=== PATIENT | male | born 1940 | race Caucasian/White ===

== ENCOUNTER 2018-05-23 09:05 | Inpatient (IN) ==
[2018-05-23] MEDS ORDERED: Morphine Sulfate Inj 2 MG/ML Vial IV.PUSH ONE (09:32)
[2018-05-23] MEDS ORDERED: Diphtheria/Tetanus/Pertussis Vaccine Inj 0.5 ML Syringe IM ONE (09:32)
--- NOTE | 2018-05-23 09:56 | ED ---
HPI General Chief complaint: Fall Stated complaint: fall Source: patient, EMS and RN notes reviewed Mode of arrival: EMS History of Present Illness HPI narrative: 78yM presenting after a fall. The patient reports that he was carrying a number of objects down the stairs when he fell, hitting the back of his head on the tile floor. He is unsure if he lost consciousness. He currently complains of diffuse headache, worst in occiput, not made better by anything/ worse with bright lights, constant, non-radiating, moderate intensity, and "aching". He takes 81 mg aspirin but does not use any other anticoagulants/ antiplatelets. Family history non-contributory. Related Data Home Medications Medication Instructions Recorded Confirmed aspirin 81 mg PO BID 05/23/18 05/23/18 metoprolol tartrate 50 mg PO DAILY 05/23/18 05/23/18 olmesartan [Benicar] 20 mg PO DAILY 05/23/18 05/23/18 Allergies Allergy/AdvReac Type Severity Reaction Status Date / Time No Known Allergies Allergy Verified 05/23/18 09:25 Review of Systems ROS: all other systems reviewed are negative Constitutional Denies fever(s) and Reports headache(s) Eyes Denies blurry vision ENT Reports nasal congestion Cardiovascular Denies chest pain Respiratory Denies cough Gastrointestinal Denies nausea Genitourinary Denies dysuria Musculoskeletal Denies back pain Neurologic Denies confusion Psychiatric Denies confusion PMFSH History History Provided By: Patient Medical History Medical History HTN (hypertension) (Acute) Heart attack (Acute) Social History Social History Substance History: No History of Abuse Second Hand Smoke Exposure: No Smoking Status: Former smoker Tobacco Type: Cigarettes How Often Do You Have a Drink Containing Alcohol: 2 to 3 times a week Recent Travel in [facility] within the Last 8 Weeks: No Recent Out of Country Travel within the Last 8 Weeks: No Immunization History Tetanus Immunization: Unsure Hx Influenza Vaccine This Season: Yes Exam Const General: healthy appearing and no acute distress HENMT Face and sinus: normal facial exam Other: Small hematoma/ tenderness to occiput, no scalp laceration Eyes General: appearance normal, both eyes and all related structures Pupils: PERRL Other: Pupils 3 mm and reactive bilaterally Neck Other: No midline C spine tenderness Patient declined cervical collar by EMS Chest Chest: normal inspection of the chest Resp Effort & Inspection: normal respiratory effort Auscultation: no rhonchi and no wheezes Cardio Rate: regular rate Rhythm: regular rhythm GI Inspection: non-distended Palpation: soft and nontender Back/Spine/Pelvis Other: No midline thoracolumbar tenderness (+) tenderness to left lateral thoracic area overlying ribs, no crepitus or ecchymosis Skin General: no rashes or lesions noted Other: 1 cm superficial laceration to ulnar surface of right 2nd digit, no active bleeding Neuro General: alert, awake, oriented x3 and no focal motor deficits Other: GCS 15 but appears mildly confused, repetitive Speech clear and fluent Moving all extremities No focal neuro deficits Psych Affect: normal affect Procedures Laceration right 2nd digit: Site: hand Side (If applicable): right Size (cm): 2 Description: linear Depth: simple, single layer Anesthetic used: lidocaine 1% Anesthesia technique:: nerve block (digital block) Amount (mL): 10 Pre-repair:: wound explored, irrigated extensively and deep structures intact Skin layer closed with: ethilon Size (cm): 5-0 Number of sutures:: 3 Technique:: simple, interrupted (Tolerated well, no immediate complications) Course Consultations Consultation #1: Patient found to have possible SDH along anterior falx; I had a long conversation with the patient regarding these findings and reviewed the CT scan with him. He agrees to stay for observation. I spoke with Dr. Fowler of trauma surgery, who agrees with obs. The patient requires transfer to the [facility] for trauma and neurosurgery evaluations. Time: 11:07 Consultation #2: Case discussed with Yoko (HEATHER working with Dr. Dutton), who will consult when patient arrives at [facility]. Time: 11:10 Initial Documented Vital Signs Temperature 98.2 F 05/23/18 09:09 Pulse Rate 69 05/23/18 09:09 Respiratory Rate 18 05/23/18 09:09 Blood Pressure 162/95 H 05/23/18 09:09 Pulse Oximetry 99 05/23/18 09:09 Last Documented Vital Signs Temperature 98.2 F 05/23/18 09:09 Pulse Rate 71 05/23/18 11:04 Respiratory Rate 18 05/23/18 11:04 Blood Pressure 151/76 H 05/23/18 11:04 Pulse Oximetry 95 05/23/18 11:04 Medical Decision Making MDM Narrative Medical decision making narrative: Assessment: 78yM presenting with fall, head injury Plan: Pain control, update tetanus CT head, C spine X-ray ribs, lumbar spine Laceration repaired, patient instructed to return in 7 days for suture removal Addendum: Patient found to have possible blood along anterior falx, requires transfer to [facility] for trauma and neurosurg evals. Please see "consults" tab for discussions with consultants. Medical Screen Exam Complete: Yes Emergency Medical Condition: Yes Differential Diagnosis Differential Diagnosis: Differential diagnosis includes, but is not limited to: ICH, skull fracture, closed head injury, C/ L spine fracture, rib fracture, PTX , laceration Lab Data Result diagrams: 05/23/18 11:10 05/23/18 11:10 Imaging Data Radiologist's impression: Cervical Spine CT 05/23/18 09:32 CONCLUSION: Degenerative spondylosis without any significant compromise to the exiting nerve roots or the thecal sac. Head CT 05/23/18 09:32 CONCLUSION: 1. Focal asymmetrical hyperdense prominence of the anterior falx which likely reflects atypical pattern of calcification. Cannot entirely exclude focal blood products in this region although suspect this is unlikely. 2. Otherwise, no acute intracranial abnormality. . Lumbar Spine X-Ray 05/23/18 09:32 CONCLUSION: Chronic changes. Ribs X-Ray 05/23/18 09:32 CONCLUSION: Chronic changes and no definite fracture for technique . Discharge Plan Discharge Disposition Patient Disposition: 02 Transfer To [facility] Discharge Condition Condition: Stable Discharge Details Discharge Comment: Patient needs to return to the ED or see his PMD in 7 days for suture removal. Diagnosis: Acute subdural hematoma, Laceration of right index finger Physicians Team ED Provider: Arelis Galaviz Primary Care Provider: UNKNOWN, Attending Provider: Shivam Fowler Other Providers: Jah Dutton Discharge Interventions Interventions: Vital Signs Last Done: 05/23/18 09:31 Status ED Status: Admitted Observation Patient
[2018-05-23] MEDS ORDERED: Lidocaine PF 1% Inj 10 ML Amp INFILTRATN ONE (10:03)
--- NOTE | 2018-05-23 10:09 | XR ---
EXAM DATE: 05/23/2018 10:03 AM EDT AGE/SEX: 78 years / Male INDICATIONS: Lower back pain post fall. CLINICAL DATA: This is the patient's initial encounter. Patient reports that signs and symptoms have been present for 1 day and indicates a pain score of 10/10. MEDICAL/SURGICAL HISTORY: Hypertension. Myocardial infarction. None. COMPARISON: No prior exams available for comparison. FINDINGS: No appreciable compression deformities, spondylolisthesis, or spondylolysis is seen. Moder ate degenerative changes are seen within the disc space and facets. Chronic atherosclerotic calcifica tions are seen without any definite aneurysmal dilatations for technique. There is moderate amount of stool in the colon. CONCLUSION: Chronic changes. Electronically signed by: Malka Santo MD 05/23/2018 10:07 AM EDT
--- NOTE | 2018-05-23 10:11 | XR ---
EXAM DATE: 05/23/2018 10:06 AM EDT AGE/SEX: 78 years / Male INDICATIONS: Left side rib pain post fall CLINICAL DATA: This is the patient's initial encounter. Patient reports that signs and symptoms have been present for 1 day and indicates a pain score of 10/10. MEDICAL/SURGICAL HISTORY: Hypertension. Myocardial infarction. None. COMPARISON: No prior exams available for comparison. FINDINGS: No definite displaced rib fractures or pneumothorax is identified. There is evidence for o ld fracture of left lower glenohumeral joint with displaced bony fragments and a superimposed signifi cant degenerative change within the joint. Slight degree of chronic calcific tendinitis is also seen. CONCLUSION: Chronic changes and no definite fracture for technique . Electronically signed by: Malka Santo MD 05/23/2018 10:09 AM EDT
--- NOTE | 2018-05-23 10:24 | CT ---
EXAM DATE: 05/23/2018 10:16 AM EDT AGE/SEX: 78 years / Male INDICATIONS: Trauma. Fell down stairs. Head injury. CLINICAL DATA: This is the patient's initial encounter. Patient reports that signs and symptoms have been present for 1 day and indicates a pain score of 9/10. MEDICAL/SURGICAL HISTORY: Myocardial infarction. Hypertension. None. RADIATION DOSE: 65.92 CTDI (mGy) COMPARISON: No prior exams available for comparison. TECHNIQUE: CT of the head without contrast. Using automated exposure control and adjustment of the mA and/or kV according to patient size, radiation dose was kept as low as reasonably achievable to ob tain optimal diagnostic quality images. DICOM format image data is available electronically for revi ew and comparison. FINDINGS: Cerebrum: There is somewhat asymmetrical hyperdensity involving the anterior falx. Moderate diffuse cerebral atrophy. The ventricles are normal for degree of atrophy. No evidence of midline shift, mass lesion, intraparenchymal hemorrhage or acute infarction. Therwise, no extraaxial fluid collections a re seen. Posterior Fossa: The cerebellum and brainstem are intact. The 4th ventricle is midline. The cerebe llopontine angle is unremarkable. Extracranial: The visualized portion of the orbits is intact. Skull: The calvaria is intact. No evidence of skull fracture. CONCLUSION: 1. Focal asymmetrical hyperdense prominence of the anterior falx which likely reflects atypical jayden kiya of calcification. Cannot entirely exclude focal blood products in this region although suspect th is is unlikely. 2. Otherwise, no acute intracranial abnormality. . Electronically signed by: Jcarlos Hubbard MD 05/23/2018 10:23 AM EDT
--- NOTE | 2018-05-23 10:30 | CT ---
EXAM DATE: 05/23/2018 10:21 AM EDT AGE/SEX: 78 years / Male INDICATIONS: Trauma. Fell down stairs. Head injury. CLINICAL DATA: This is the patient's initial encounter. Patient reports that signs and symptoms have been present for 1 day and indicates a pain score of 2/10. MEDICAL/SURGICAL HISTORY: Myocardial infarction. Hypertension. None. RADIATION DOSE: 26.54 CTDI (mGy) COMPARISON: No prior exams available for comparison. TECHNIQUE: Contiguous axial images were obtained using helical multirow detector technique. The vol umetric data was post-processed with multiplanar reconstruction in oblique axial, sagittal, and coron al planes. Using automated exposure control and adjustment of the mA and/or kV according to patient s ize, radiation dose was kept as low as reasonably achievable to obtain optimal diagnostic quality willi ges. DICOM format image data is available electronically for review and comparison. FINDINGS: No significant subluxation or soft tissue swelling is seen. No definite fracture is identified for te chnique. C2-C3: No appreciable compromise to the thecal sac, exiting nerve roots are seen. The neural foramin a are patent bilaterally. No appreciable thecal sac stenosis is seen. C3-C4: No appreciable compromise to the thecal sac, exiting nerve roots are seen. The neural foramin a are patent bilaterally. No appreciable thecal sac stenosis is seen. C4-C5: No appreciable compromise to the thecal sac, exiting nerve roots are seen. The neural foramin a are patent bilaterally. No appreciable thecal sac stenosis is seen. Slight bulging disc and hypertr ophic changes are seen with indentation on the thecal sac and no significant compromise to the thecal sac or the exiting nerve roots. C5-C6: No appreciable compromise to the thecal sac, exiting nerve roots are seen. The neural foramin a are patent bilaterally. No appreciable thecal sac stenosis is seen. Slight degenerative changes are present in the disc space and facets. Slight bulging disc and hypertrophic changes are seen with ind entation on the thecal sac and no significant compromise to the thecal sac or the exiting nerve roots . C6-C7: No appreciable compromise to the thecal sac, exiting nerve roots are seen. The neural foramin a are patent bilaterally. No appreciable thecal sac stenosis is seen.Slight degenerative changes are present in the disc space and facets. Slight bulging disc and hypertrophic changes are seen with inde ntation on the thecal sac and no significant compromise to the thecal sac or the exiting nerve roots. C7-T1: No appreciable compromise to the thecal sac, exiting nerve roots are seen. The neural foramin a are patent bilaterally. No appreciable thecal sac stenosis is seen. CONCLUSION: Degenerative spondylosis without any significant compromise to the exiting nerve roots o r the thecal sac. Electronically signed by: Malka Santo MD 05/23/2018 10:29 AM EDT
[2018-05-23] MEDS ORDERED: Bacitracin Oint 0.9 GM Packet TOPICAL ONE (11:31)
[2018-05-23 11:36] LABS: Hematocrit 34.8 % (39.0-51.0); Hemoglobin 11.5 gm/dL (13.0-17.0); Mean Corpuscular Hemoglobin 29.2 pg (27.0-34.0); Mean Corpuscular Volume 88.4 fL (80.0-100.0); Mean Platelet Volume 10.2 fL (7.0-11.0); Platelet Count 99 th/mm3 (150-450); Red Blood Count 3.94 mil/mm3 (4.50-5.90); Red Cell Distribution Width 14.3 % (11.6-17.2); White Blood Count 5.9 th/mm3 (4.0-11.0)
[2018-05-23 11:37] LABS: Potassium 4.5 meq/L (3.5-5.1)
[2018-05-23 11:39] LABS: Calcium 8.7 mg/dL (8.5-10.1)
[2018-05-23 11:40] LABS: Carbon Dioxide 27.1 meq/L (21.0-32.0); INR 1.1 Ratio; Prothrombin Time 11.2 sec (9.8-11.6)
[2018-05-23 11:59] LABS: Lymphocytes 13 % (9-44); Monocytes 22 % (0-8); Platelet Morphology Normal (Normal)
--- NOTE | 2018-05-23 14:35 | P.CONNS ---
History of Present Illness Service: neurosurgery Primary Care Provider: UNKNOWN History of Present Illness: This is a 78 year old male who presents to the emergency after a fall. The patient reports that he was carrying a number of objects down the stairs when he fell, hitting the back of his head on the tile floor. He is unsure if he lost consciousness. He currently complains of diffuse headache, worst in occiput , not made better by anything/ worse with bright lights, constant, non-radiating , moderate intensity, and "aching". He takes 81 mg aspirin but does not use any other anticoagulants/ antiplatelets. His family history was reviewed and was non contributory to the present admission Review of Systems Constitutional: Denies anorexia, Denies body ache(s), Denies chills, Denies daytime sleepiness, Denies excessive sweating, Denies fatigue, Denies fever(s), Denies headache(s), Denies increased appetite, Denies lack of energy, Denies malaise, Denies night sweats, Denies weakness, Denies weight gain, Denies weight loss, Denies other Eyes: Denies blind spots, Denies blurry vision, Denies bulging eyes, Denies change in vision, Denies double vision, Denies discharge, Denies dry eyes, Denies floaters, Denies irritation, Denies itchy eyes, Denies loss of vision, Denies pain, Denies requires corrective lenses, Denies sensitivity to light, Denies other Ears, Nose, Mouth, and Throat: Denies abnormal hearing, Denies bleeding gums, Denies bad breath, Denies change in voice, Denies dental pain, Denies difficulty swallowing, Denies dizziness, Denies dry mouth, Denies ear discharge , Denies ear pain, Denies facial pain, Denies headache(s), Denies hearing loss, Denies hoarseness, Denies lip swelling, Denies nosebleed, Denies mouth lesions, Denies mouth pain, Denies nasal congestion, Denies nasal discharge, Denies nasal obstruction, Denies nasal trauma, Denies neck lump, Denies neck pain, Denies nose pain, Denies pain with swallowing, Denies poor balance, Denies post nasal drip, Denies ringing in the ears, Denies sinus pain, Denies sinus pressure , Denies sore throat, Denies throat swelling, Denies tongue swelling, Denies other Cardiovascular: Denies chest pain, Denies chest pain at rest, Denies chest pain with activity, Denies excessive sweating, Denies fainting, Denies fast heart rate, Denies foot swelling, Denies generalized swelling, Denies irregular heart rhythm, Denies leg pain with activity, Denies leg sores, Denies leg swelling, Denies lightheadedness, Denies radiating jaw, neck or arm pain, Denies rapid, pounding, or irregular heartbeat, Denies shortness of breath, Denies shortness of breath with activity, Denies shortness of breath when lying down, Denies shortness of breath causing sudden awakening, Denies slow heart rate, Denies other Respiratory: Denies change in phlegm color, Denies chest congestion, Denies cough, Denies coughing up blood, Denies excessive phlegm production, Denies pain on inspiration, Denies pain with cough, Denies shortness of breath, Denies shortness of breath with activity, Denies snoring, Denies stridor, Denies wheezing, Denies other Gastrointestinal: Denies abdominal pain, Denies belching, Denies black, tarry stools, Denies bloating, Denies bright, red blood in stools, Denies change in bowel habits, Denies constant urge to pass stool, Denies change in stools, Denies coffee ground vomit, Denies constipation, Denies cramping, Denies difficulty swallowing, Denies excessive passing of gas, Denies feeling full early, Denies heartburn, Denies incontinent of stools, Denies loose stools, Denies nausea, Denies pain with swallowing, Denies vomiting, Denies vomiting blood, Denies other Genitourinary: Denies blood in semen, Denies blood in urine, Denies decreased urination, Denies difficulty urinating, Denies difficulty with ejaculations, Denies erectile dysfunction, Denies genital lesions, Denies genital pain, Denies painful urination, Denies side pain, Denies frequent nighttime urination , Denies painful ejaculations, Denies penile discharge, Denies scrotal swelling , Denies testicle lump, Denies testicle pain, Denies urinary frequency, Denies urinary hesitancy, Denies urinary incontinence, Denies urinary urgency, Denies other Musculoskeletal: Denies abnormal walking, Denies back pain, Denies body aches, Denies decreased muscle mass, Denies deformity, Denies joint pain, Denies joint swelling, Denies limited joint movement, Denies loss of height, Denies muscle cramps, Denies muscle weakness, Denies neck pain, Denies numbness, Denies radiating pain into limb, Denies stiffness, Denies tingling, Denies other Skin/Breast: Denies acne, Denies bleeding lesions, Denies boil, Denies breast swelling, Denies breast skin changes, Denies breast pain, Denies breast lump, Denies change in breast shape, Denies change in hair, Denies change in skin color, Denies changing lesions, Denies dry skin, Denies excessive hair growth, Denies hair loss, Denies itching, Denies lesions, Denies nail changes, Denies new lesions, Denies nipple discharge, Denies non-healing lesions, Denies redness , Denies sensitivity to light, Denies rash, Denies skin pain, Denies skin ulcer , Denies sores, Denies stretch stallings, Denies unusual bruising, Denies wounds, Denies yellowing of the skin, Denies other Neurologic: Reports confusion, Reports other visual disturbances Psychiatric: Denies abnormal sleep pattern, Denies anxiety, Denies behavioral changes, Denies change in appetite, Denies change in sex drive, Denies confusion , Denies depression, Denies difficulty concentrating, Denies hearing things others do not hear, Denies hopelessness, Denies irritability, Denies lack of enjoyment, Denies memory loss, Denies mood swings, Denies panic attacks, Denies paranoia, Denies seeing things others do not see, Denies sensing things others do not sense, Denies tactile hallucinations, Denies thoughts of hurting/killing others, Denies thoughts of hurting/killing yourself, Denies other Endocrine: Denies cold intolerance, Denies excessive sweating, Denies flushing, Denies heat intolerance, Denies increased hunger, Denies increased thirst, Denies increased urination, Denies rapid, pounding, or irregular heartbeat, Denies other PMFSH - History History Provided By: Patient - Medical History Medical History: Medical History (Last Reviewed 05/24/18 @ 12:39 by Jah Dutton MD) HTN (hypertension) Heart attack - Tobacco History Second Hand Smoke Exposure: No Tobacco Use In Past 30 Days: No Smoking Status: Former smoker Tobacco Type: Cigarettes - Alcohol History How Often Do You Have a Drink Containing Alcohol: 2 to 3 times a week - Substance Use History Substance History: No History of Abuse - Travel History Recent Travel in the [place] Within the Last 8 Weeks: No Recent Travel Out of the Country Within the Last 8 Weeks: No - Immunization History Tetanus Immunization: Unsure Hx Influenza Vaccine This Season: Yes Medications and Allergies Allergies Allergy/AdvReac Type Severity Reaction Status Date / Time No Known Allergies Allergy Verified 05/23/18 09:25 Home Medications Medication Instructions Recorded Confirmed Type metoprolol tartrate 50 mg PO DAILY 05/23/18 05/23/18 History olmesartan [Benicar] 20 mg PO DAILY 05/23/18 05/23/18 History Exam Vital signs: Vital Signs 05/23/18 09:09 05/23/18 09:31 05/23/18 11:04 Temperature 98.2 F Pulse Rate 69 68 71 Respiratory Rate 18 18 18 Blood Pressure 162/95 H 158/77 H 151/76 H Pulse Oximetry 99 98 95 05/23/18 12:13 Temperature Pulse Rate 70 Respiratory Rate 18 Blood Pressure 152/78 H Pulse Oximetry 95 Intake & Output 05/22/18 05/23/18 05/23/18 18:59 06:59 18:59 Weight 91.172 kg Narrative: The patient is alert, awake. Comfortable, in no acute distress. Speech is fluent. Cranial nerve examination: pupils to be equal, round and reactive to light. Extra-ocular movements are intact. Facial motor and sensory function are normal and symmetrical. Gross hearing appears intact. Sternocleidomastoid and trapezius muscles are symmetrical. Other cranial nerves are intact. Neck is soft and supple with a good range of motion without pain. Muscle strength is normal in all muscle groups of both upper and lower extremities. Sensory examination is intact to light touch and pin prick in both the upper and lower extremities. Deep tendon reflexes are symmetrical in both upper and lower extremities. There is a bilateral plantar flexion response. Cerebellar examination is unremarkable, without deficits. Lungs are clear Heart regular rhythm is regular rate Skin warm and dry Results - Laboratory Findings CBC and BMP: 05/24/18 08:06 05/24/18 08:06 Abnormal lab findings: Abnormal Labs 05/23/18 05/23/18 11:10 11:10 RBC 3.94 L Hgb 11.5 L Hct 34.8 L Plt Count 99 L Monocytes % (Manual) 22 H Platelet Estimate Low L Chloride 108 H BUN 20 H Estimated GFR 59 L Random Glucose 121 H Assessment and Plan - Plan I reviewed his radiological studies including Cervical Spine CT 05/23/18 09:32 CONCLUSION: Degenerative spondylosis without any significant compromise to the exiting nerve roots or the thecal sac. Head CT 05/23/18 09:32 CONCLUSION: 1. Focal asymmetrical hyperdense prominence of the anterior falx which likely reflects atypical pattern of calcification. Cannot entirely exclude focal blood products in this region although suspect this is unlikely. 2. Otherwise, no acute intracranial abnormality. . Lumbar Spine X-Ray 05/23/18 09:32 CONCLUSION: Chronic changes. Ribs X-Ray 05/23/18 09:32 CONCLUSION: Chronic changes and no definite fracture for technique . Neuro: neuro checks in a serial fashion. He suffered a severe concusion and has symptoms consisent with a post concusion syndrome. Follow-up CT of the brain in the morning is recommended Hypertension monitor his blood pressure and treated with antihypertensives Pulmonary: aggressive pulmonary toilette, nasotracheal suction, and breathing treatments with nebulizers. Daily PT and OT Renal: Continue to monitor closely urine output, BUN and creatinine Endocrine: Continue to Monitor serial Acu checks and SSI as needed in detail ID continue to monitor for signs of infection Continue Protonix for stress ulcer prophylaxis Continue Rubin hose and SCD's for DVT prophylaxis Further recommendations will be provided depending on the patient's clinical evaluation and follow up studies. Discussed with Dr. Khalil
[2018-05-23] MEDS ORDERED: Acetaminophen 325 MG Tablet PO PRN (16:52)
[2018-05-23] MEDS ORDERED: Pantoprazole Inj 40 MG Vial IV.PUSH SCH (17:00)
[2018-05-23] MEDS: Sod Chloride 0.9% Inj 1,000 ML IV.CONT SCH (17:20)
--- NOTE | 2018-05-23 17:53 | MH ---
cc: Shivam Fowler MD DATE OF ADMISSION: 05/23/2018 HISTORY: This is a 78-year-old male who presented to the emergency room after a fall from about 5 stairs up. The patient was evaluated in the emergency room and thought to have a traumatic brain injury. As a result trauma service was requested upon admission. The patient complains of headache, right finger pain. He remembers the fall. Unsure whether he lost consciousness. States that if he did lose consciousness it was brief. He denies chest pain or shortness of breath. No paresthesias. No neck pain. No abdominal pain. PAST MEDICAL HISTORY: Significant for hypercholesterolemia. MEDICATIONS AT HOME: Includes: 1. Baby aspirin 2. Crestor. SOCIAL HISTORY: The patient does not currently smoke. He drinks alcohol occasionally. ALLERGIES: HE HAS NO KNOWN DRUG ALLERGIES. FAMILY HISTORY: Noncontributory. REVIEW OF SYSTEMS: Significant for above. PHYSICAL EXAMINATION: GENERAL: He is lying in a stretcher in no acute distress. HEENT: His pupils are equal and reactive. NECK: Trachea is midline. Neck nontender. RESPIRATIONS: Clear. CARDIOVASCULAR: Regular. GASTROINTESTINAL: Soft, nontender. MUSCULOSKELETAL: No deformity. NEUROLOGIC: Nonfocal. BACK: Nontender. No step-offs. EXTREMITIES: He does have a suture laceration on the second digit of his right hand. RADIOLOGIC IMAGES: CT scan of the patient's head reveals questionable calcification versus focal blood in the anterior falx. CT of the cervical spine, no fracture. Rib x-ray, no fracture on the left. ASSESSMENT AND PLAN: This is a patient status post fall with questionable closed head injury. The patient neurologically intact. The patient will be admitted for observation. Neurosurgery has been consulted. We will repeat his head CT in the a.m. Provide pain management. Shivam Fowler MD JLS/ct , 05:16 PM , 05:24 PM
[2018-05-24] MEDS: Sod Chloride 0.9% Inj 1,000 ML IV.CONT SCH ×2 (04:03→15:22)
--- NOTE | 2018-05-24 08:53 | CT ---
EXAM DATE: 05/24/2018 8:44 AM EDT AGE/SEX: 78 years / Male INDICATIONS: Abnormal prior CT brain. CLINICAL DATA: This is the patient's initial encounter. Patient reports that signs and symptoms have been present for 1 day and indicates a pain score of 0/10. MEDICAL/SURGICAL HISTORY: Hypertension. Myocardial infarction. None. RADIATION DOSE: 56.35 CTDI (mGy) COMPARISON: [facility], CT HEAD W/O CONTRAST, 05/23/2018. . TECHNIQUE: CT of the head without contrast. Using automated exposure control and adjustment of the mA and/or kV according to patient size, radiation dose was kept as low as reasonably achievable to ob tain optimal diagnostic quality images. DICOM format image data is available electronically for revi ew and comparison. FINDINGS: Cerebrum: The ventricles are normal for age. No evidence of midline shift, mass lesion, hemorrhage or acute infarction. No extraaxial fluid collections are seen. The anterior falx is again noted to b e hyperdense but most likely related to calcifications Posterior Fossa: The cerebellum and brainstem are intact. The 4th ventricle is midline. The cerebe llopontine angle is unremarkable. Extracranial: The visualized portion of the orbits is intact. Skull: The calvaria is intact. No evidence of skull fracture. CONCLUSION: 1. Stable CT brain. 2. Hyperdense anterior falx likely related to calcification and less likely hemorrhage. No midline s hift or mass effect. . Electronically signed by: Koffi Dalton MD 05/24/2018 8:51 AM EDT
[2018-05-24 09:01] LABS: Baso % (Auto) 0.1 % (0.0-2.0); Eos % (Auto) 0.3 % (0.0-4.0); Hematocrit 32.8 % (39.0-51.0); Hemoglobin 11.2 gm/dL (13.0-17.0); Lymph # (Auto) 1.6 th/mm3 (1.0-4.8); Lymph % (Auto) 15.7 % (9.0-44.0); Mean Corpuscular HGB Conc 34.3 % (32.0-36.0); Mean Corpuscular Hemoglobin 29.8 pg (27.0-34.0); Mean Corpuscular Volume 86.8 fL (80.0-100.0); Mean Platelet Volume 10.1 fL (7.0-11.0); Mono # (Auto) 3.7 th/mm3 (0.0-0.9); Mono % (Auto) 37.3 % (0.0-8.0); Neut # (Auto) 4.6 th/mm3 (1.8-7.7); Neut % (Auto) 46.6 % (16.0-70.0); Platelet Count 108 th/mm3 (150-450); Red Blood Count 3.77 mil/mm3 (4.50-5.90); White Blood Count 9.9 th/mm3 (4.0-11.0)
[2018-05-24 09:19] LABS: Albumin 3.7 g/dL (3.4-5.0); Anion Gap 8 meq/L (5-15); Aspartate Aminotransferase 20 U/L (15-37); Blood Urea Nitrogen 21 mg/dL (7-18); Calcium 8.4 mg/dL (8.5-10.1); Carbon Dioxide 25.2 meq/L (21.0-32.0); Chloride 107 meq/L (98-107); Glomerular Filtration Rate 47 mL/min (>89); Glucose,Random 107 mg/dL (74-106); Sodium 140 meq/L (136-145)
[2018-05-24 09:22] LABS: Alanine Aminotransferase 21 U/L (12-78); Alkaline Phosphatase 50 U/L (45-117); Total Protein 7.2 g/dL (6.4-8.2)
[2018-05-24] MEDS ORDERED: Metoprolol Tartrate 50 MG Tablet PO SCH (10:00)
[2018-05-24 10:13] LABS: Platelet Morphology Normal (Normal)
[2018-05-24] MEDS: Senna/Docusate Sodium 8.6/50 MG Tablet PO SCH ×2 (12:16→12:19)
--- NOTE | 2018-05-24 12:46 | P.PNNS ---
Subjective Interval history: This is a 78 year old male who presents to the emergency after a fall. The patient reports that he was carrying a number of objects down the stairs when he fell, hitting the back of his head on the tile floor. He is unsure if he lost consciousness. He currently complains of diffuse headache, worst in occiput , not made better by anything/ worse with bright lights, constant, non-radiating , moderate intensity, and "aching". He takes 81 mg aspirin but does not use any other anticoagulants/ antiplatelets. 05/24. He reports persistent headaches and photophobia. No focal deficits. Follow up CT of the brain was obtained Physical Exam Vital signs: Vital Signs 05/23/18 17:04 05/23/18 18:37 05/23/18 20:00 Temperature 98.2 F 98.0 F Pulse Rate 68 65 65 Respiratory Rate 20 15 Blood Pressure 142/60 H 117/60 Pulse Oximetry 98 95 05/23/18 23:45 05/24/18 03:54 05/24/18 08:00 Temperature 98.6 F 98.7 F 98.6 F Pulse Rate 64 78 75 Respiratory Rate 23 22 16 Blood Pressure 154/68 H 166/70 H 143/67 H Pulse Oximetry 96 95 93 L 05/24/18 12:00 Temperature 98.4 F Pulse Rate 74 Respiratory Rate 16 Blood Pressure 156/72 H Pulse Oximetry 94 L Intake & Output 05/23/18 05/24/18 05/24/18 18:59 06:59 18:59 Intake Total 1000 / 1000 Balance 1000 / 1000 Weight 91.172 kg 93.9 kg Intake: IV 1000 / 1000 NS Inj 1,000 ML @ 100 mls/hr IV 1000 / 1000 .CONT .Q10H [facility] Rx#:[id number] Oral 0 / 0 Oral Supplement 0 / 0 Narrative: Mr Good is alert, awake. Comfortable, in no acute distress. Speech is fluent. Cranial nerve examination: pupils to be equal, round and reactive to light. Extra-ocular movements are intact. Facial motor and sensory function are normal and symmetrical. Gross hearing appears intact. Sternocleidomastoid and trapezius muscles are symmetrical. Other cranial nerves are intact. Neck is soft and supple with a good range of motion without pain. Muscle strength is normal in all muscle groups of both upper and lower extremities. Sensory examination is intact to light touch and pin prick in both the upper and lower extremities. Deep tendon reflexes are symmetrical in both upper and lower extremities. There is a bilateral plantar flexion response. Cerebellar examination is unremarkable, without deficits. Lungs are clear Heart regular rhythm is regular rate Skin warm and dry Assessment and Plan - Plan I reviewed his follow 7up CT of the brain today Neuro: Continue neuro checks in a serial fashion. He suffered a severe concusion and explained to him that his symptoms are consistent with a post concusion syndrome. Follow-up CT of the brain was stable Hypertension monitor his blood pressure and treated with antihypertensives Pulmonary: aggressive pulmonary toilette, nasotracheal suction, and breathing treatments with nebulizers. Daily PT and OT Renal: Continue to monitor closely urine output, BUN and creatinine Endocrine: Continue to Monitor serial Acu checks and SSI as needed in detail ID continue to monitor for signs of infection Continue Protonix for stress ulcer prophylaxis Continue Rubin hose and SCD's for DVT prophylaxis Further recommendations will be provided depending on the patient's clinical evaluation and follow up studies. Can discharge home per neuropsurgical standpoint
--- NOTE | 2018-05-24 13:51 | P.PN ---
Subjective Interval history: Trauma PTD: 1 Physical Exam Vital signs: Vital Signs 05/23/18 17:04 05/23/18 18:37 05/23/18 20:00 Temperature 98.2 F 98.0 F Pulse Rate 68 65 65 Respiratory Rate 20 15 Blood Pressure 142/60 H 117/60 Pulse Oximetry 98 95 05/23/18 23:45 05/24/18 03:54 05/24/18 08:00 Temperature 98.6 F 98.7 F 98.6 F Pulse Rate 64 78 75 Respiratory Rate 23 22 16 Blood Pressure 154/68 H 166/70 H 143/67 H Pulse Oximetry 96 95 93 L 05/24/18 12:00 Temperature 98.4 F Pulse Rate 74 Respiratory Rate 16 Blood Pressure 156/72 H Pulse Oximetry 94 L Intake & Output 05/23/18 05/24/18 05/24/18 18:59 06:59 18:59 Intake Total 1000 / 1000 Balance 1000 / 1000 Weight 91.172 kg 93.9 kg Intake: IV 1000 / 1000 NS Inj 1,000 ML @ 100 mls/hr IV 1000 / 1000 .CONT .Q10H [facility] Rx#:[id number] Oral 0 / 0 Oral Supplement 0 / 0 Results - Labs CBC & Chem 7: 05/24/18 08:06 05/24/18 08:06 Laboratory Results - last 24 hr 05/24/18 05/24/18 08:06 08:06 WBC 9.9 D RBC 3.77 L Hgb 11.2 L Hct 32.8 L MCV 86.8 MCH 29.8 MCHC 34.3 RDW 15.0 Plt Count 108 L MPV 10.1 Prelim Diff (Auto) Slide review pending Neut % (Auto) 46.6 Lymph % (Auto) 15.7 [place] % (Auto) 37.3 H Eos % (Auto) 0.3 Baso % (Auto) 0.1 Neut # (Auto) 4.6 Lymph # (Auto) 1.6 [place] # (Auto) 3.7 H Eos # (Auto) 0.0 Baso # (Auto) 0.0 WBC Differential . Diff Scan Auto diff confirmed Differential Comment . Platelet Estimate Low L Platelet Morphology Normal Sodium 140 Potassium 4.0 Chloride 107 Carbon Dioxide 25.2 Anion Gap 8 BUN 21 H Creatinine 1.45 H Estimated GFR 47 L Random Glucose 107 H Calcium 8.4 L Total Bilirubin 0.6 AST 20 ALT 21 Alkaline Phosphatase 50 Total Protein 7.2 Albumin 3.7 - Imaging Impressions Head CT 05/24/18 06:00 CONCLUSION: 1. Stable CT brain. 2. Hyperdense anterior falx likely related to calcification and less likely hemorrhage. No midline shift or mass effect. .
--- NOTE | 2018-05-24 14:49 | OTSOAPIP ---
TIME SESSION COMPLETED: 1115 TREATMENT TIME: 0 MINS. CHART REVIEWED. ATTEMPTED TO SEE FOR OT EVALUATION AND ENTERED ROOM AND INTRODUCED SELF TO PATIENT, HOWEVER DR. FLOWER CAME IN TO SEE PATIENT. WILL FOLLOW ABLE. Therapist: Kerry Hawk Signature on file
--- NOTE | 2018-05-25 09:29 | P.DS ---
Date of admission: 05/23/18 16:52 Primary care physician: UNKNOWN Anticipated date of discharge: 05/24/18 Brief History from admission: Mechanical fall. DS: Diagnosis - Discharge Diagnosis (1) Acute subdural hematoma Status: Acute (2) Laceration of right index finger Status: Acute DS: Medications - Discharge Medications Prescriptions: oxycodone-acetaminophen [Percocet] 1 tab PO Q4-6H PRN 3 Days #18 tab PRN Reason: Pain DS: Summary Hospital Course: [place]: This ia a 78 year old male who sustained a mechanical fall. Fell down some stairs while carrying many items in his hands. Hit his head on the tile floor. + LOC. On asprin. INJURIES: SD[facility] RIGHT finger laceration (3 sutures) PMHx: HTN. HLD. Consults: SHRUTHI. CM. The patient is now tolerating a po diet. Eating and drinking well. Pain is being managed well with PO pain medications, and patient is being a provided with a script for pain meds upon discharge. [This patient will be prescribed narcotic pain medications due to his traumatic injuries. The patient has a normal physiological response to severe traumatic injuries and surgery. He will need acute pain management with prescribed narcotic treatment. The [employer] prescription drug monitoring program database has been queried.] (NO driving while taking narcotic pain medication enforced to patient.) We have recommended to patient to continue with stool softeners while taking narcotic pain medications to prevent constipation. Pt has been participating in PT while admitted at [facility] and has been ambulating with their assistance and independently. PT recommends outpatient PT. Referral provided. All follow up appointments have been provided and discussed with the patient. It is recommended that the patient keeps all his follow up appointments for continued recovery. Patient's condition and plan of care discussed with collaborating trauma surgeon. He is agreeable to plan for discharge today. Therefore, the patient is stable to be safely discharged home from a trauma surgery standpoint. Thank you for allowing us to participate in his care. We wish Shantanu the best in his recovery. [facility] Neurosurgery consulted and assisting in management and care Supportive care Serial neuro checks 05/24: CT brain stable CT brain for any change in neurological status PT ordered [facility] out of bed Pain management Cleared by neurosurgery for discharge Follow-up outpatient RIGHT finger laceration Wash gently with soap and water and pat dry daily. Return to PCP for suture removal - Time Spent with Patient Total time spent providing and/or coordinating discharge services: Greater than 30 minutes - Quality: VTE Deep Vein Thrombosis/Pulmonary Embolism Present on Admission: No Exam Vital signs: Vital Signs 05/24/18 12:00 Temperature 98.4 F Pulse Rate 74 Respiratory Rate 16 Blood Pressure 156/72 H Pulse Oximetry 94 L Results Labs on day of discharge: Labs from last 24 hours 05/24/18 08:06 WBC Differential . Diff Scan Auto diff confirmed Platelet Estimate Low L Platelet Morphology Normal - Impressions ITS Impressions Cervical Spine CT 05/23/18 09:32 CONCLUSION: Degenerative spondylosis without any significant compromise to the exiting nerve roots or the thecal sac. Lumbar Spine X-Ray 05/23/18 09:32 CONCLUSION: Chronic changes. Ribs X-Ray 05/23/18 09:32 CONCLUSION: Chronic changes and no definite fracture for technique . Head CT 05/24/18 06:00 CONCLUSION: 1. Stable CT brain. 2. Hyperdense anterior falx likely related to calcification and less likely hemorrhage. No midline shift or mass effect. . Discharge Plan - Discharge Disposition Patient Disposition: 01 Discharge Home - Discharge Condition Condition: Stable - Discharge Order Discharge Orders: Discharge Order (Routine); Ordered 05/24/18 Ordered By: Xena Beyer - Discharge Details Anticipated Discharge Date: 05/24/18 Discharge Comment: Pt may DC home when cleared by PT - PT has cleared pt - Physicians Team Primary Care Provider: UNKNOWN, Attending Provider: Shivam Fowler Other Providers: Jah Dutton MD ; Gael Valencia MD ; Jared Perez MD ; [facility] ; Shivam Fowler MD ; Xena Beyer ARNP ; Isidoro Olvera MD ; Concetta Fink MD ; Suzy English ARNP ; Liz Caceres MD
--- NOTE | 2018-05-25 09:40 | P.DS ---
Date of admission: 05/23/18 16:52 Primary care physician: UNKNOWN Anticipated date of discharge: 05/24/18 Brief History from admission: Mechanical fall. DS: Diagnosis - Discharge Diagnosis (1) Acute subdural hematoma Status: Acute (2) Laceration of right index finger Status: Acute DS: Medications - Discharge Medications Prescriptions: oxycodone-acetaminophen [Percocet] 1 tab PO Q4-6H PRN 3 Days #18 tab PRN Reason: Pain DS: Summary Hospital Course: [facility] [place] CHAPTER: This is a 48-year-old male who sustained a mechanical fall. Fell down some stairs. Hit his head on the tile floor. + LOC. On asprin. INJURIES: SDH RIGHT finger laceration (3 sutures) PMHx: HTN. HLD. Consults: Neurosurgery. Case management. The patient is now tolerating a po diet. Eating and drinking well. Pain is being managed well with PO pain medications, and patient is being a provided with a script for pain meds upon discharge. [This patient will be prescribed narcotic pain medications due to his traumatic injuries. The patient has a normal physiological response to severe traumatic injuries and surgery. He will need acute pain management with prescribed narcotic treatment. The [employer] prescription drug monitoring program database has been queried.] (NO driving while taking narcotic pain medication enforced to patient.) We have recommended to patient to continue with stool softeners while taking narcotic pain medications to prevent constipation. Pt has been participating in PT while admitted at [facility] and has been ambulating with their assistance and independently. PT recommends outpatient PT , therefore referral given. All follow up appointments have been provided and discussed with the patient. It is recommended that the patient keeps all his follow up appointments for continued recovery. Patient's condition and plan of care discussed with collaborating trauma surgeon. He is agreeable to plan for discharge today. Therefore, the patient is stable to be safely discharged home from a trauma surgery standpoint. Thank you for allowing us to participate in his care. We wish Shantanu the best in his recovery. [facility] Neurosurgery consulted and assisting in management care Supportive care Serial neuro checks 05/24: Repeat CT brain - stable Enc[facility] out of bed PT ordered Neurosurgery has cleared the patient for discharge Follow-up outpatient RIGHT finger laceration Wash gently with soap and water daily. Pat dry. Return to PCP for suture removal - Time Spent with Patient Total time spent providing and/or coordinating discharge services: Greater than 30 minutes - Quality: VTE Deep Vein Thrombosis/Pulmonary Embolism Present on Admission: No Exam Vital signs: Vital Signs 05/24/18 12:00 Temperature 98.4 F Pulse Rate 74 Respiratory Rate 16 Blood Pressure 156/72 H Pulse Oximetry 94 L Narrative: GENERAL: This is a 78-year-old male lying in bed. No distress noted. SKIN: Warm and dry. HEAD: Atraumatic. Normocephalic. EYES: PERRLA ENT: No nasal bleeding or discharge. Mucous membranes pink and moist. NECK: Trachea midline. No JVD. CARDIOVASCULAR: Regular rate and rhythm. RESPIRATORY: No accessory muscle use. Lungs are clear to auscultation. Breath sounds equal bilaterally. No distress or dyspnea. GASTROINTESTINAL: BS + x 4 quads. Abdomen soft, non-tender, nondistended. MUSCULOSKELETAL: Extremities without cyanosis, or edema. + peripheral pulses x 4 extremities. Warm with good capillary refill and sensation. MAEW. NEUROLOGICAL: Awake and alert. Normal speech and pattern. Results Procedures completed during hospitalization: . Labs on day of discharge: Labs from last 24 hours 05/24/18 08:06 WBC Differential . Diff Scan Auto diff confirmed Platelet Estimate Low L Platelet Morphology Normal - Impressions ITS Impressions Cervical Spine CT 05/23/18 09:32 CONCLUSION: Degenerative spondylosis without any significant compromise to the exiting nerve roots or the thecal sac. Lumbar Spine X-Ray 05/23/18 09:32 CONCLUSION: Chronic changes. Ribs X-Ray 05/23/18 09:32 CONCLUSION: Chronic changes and no definite fracture for technique . Head CT 05/24/18 06:00 CONCLUSION: 1. Stable CT brain. 2. Hyperdense anterior falx likely related to calcification and less likely hemorrhage. No midline shift or mass effect. . Discharge Plan - Discharge Disposition Patient Disposition: 01 Discharge Home - Discharge Condition Condition: Stable - Discharge Order Discharge Orders: Discharge Order (Routine); Ordered 05/24/18 Ordered By: Xena Beyer - Discharge Details Anticipated Discharge Date: 05/24/18 Discharge Comment: Pt may DC home when cleared by PT - PT has cleared pt - Physicians Team Primary Care Provider: UNKNOWN, Attending Provider: Shivam Fowler Other Providers: Jah Dutton MD ; Gael Valencia MD ; Jared Perez MD ; [employer] ; Shivam Fowler MD ; Xena Beyer ARNP ; Isidoro Olvera MD ; Concetta Fink MD ; Suzy English ARNP ; Liz Caceres MD
== END 2018-05-24 17:13 | disposition home or self-care (01) ==
LOC: PHED 09:05 → PHEDA 09:05 → NEPGCP 14:43
PROVIDERS: ADMIT Surgery; ATTEND Surgery